=== PATIENT | female | born 1990 | race Caucasian/White ===

== ENCOUNTER 2016-09-12 15:35 | Emergency (ER) | payer BC ==
[2016-09-12 16:00] VITALS: BP 142/91; PULSE 99; RESP 16; TEMP 97.9
--- NOTE | 2016-09-12 17:14 | ED ---
Abdominal Pain HPI - General Chief Complaint: Abdominal Pain Stated Complaint: abd pain Time Seen by Provider: 09/12/16 16:50 Source: patient, RN notes reviewed Mode of arrival: ambulatory Limitations: no limitations - History of Present Illness Initial Comments: Patient is a 26-year-old female presents to the emergency room for evaluation of right upper quadrant pain. Patient states after eating spinach dip and natalie chaps this past weekend she began developing right upper quadrant pain. Patient states now every time she eats she has right upper quadrant pain with nausea. Patient states yesterday she is having severe pain. Patient states she is unable to get into her primary care provider office today. Patient states she also has been feeling very bloated and gassy. Patient does state that she had a bowel movement today and felt little better and then ate a little bit and her pain returned. Patient does state that she has been worked up for gallbladder issues in the past. Patient states she had a HIDA scan in 2013 with no significant findings. Patient denies fevers or chills. Patient denies current nausea. Patient denies any significant pain. Patient denies pain or burning during urination, trouble urinating or blood in urine. Patient denies chest pain or shortness of breath. Patient denies headache or dizziness. - Related Data Home Medications Medication Instructions Recorded Confirmed Etonogestrel [Nexplanon ( 0 unit TD DIRECTED 09/12/16 09/12/16 control implant)] Previous Rx's Medication Instructions Recorded Famotidine [Pepcid] 20 mg PO DAILY PRN #10 tablet 09/12/16 Ondansetron Odt [Zofran Odt] 4 mg PO Q8HR PRN #12 tab 09/12/16 Allergies Allergy/AdvReac Type Severity Reaction Status Date / Time Pertussis Vaccines Allergy Unknown Verified 09/12/16 16:42 Childhood Review of Systems ROS Statement: Those systems with pertinent positive or pertinent negative responses have been documented in the HPI. ROS Other: All systems not noted in ROS Statement are negative. Past Medical History Past Medical History: No Reported History History of Any Multi-Drug Resistant Organisms: None Reported Past Surgical History: Adenoidectomy Additional Past Surgical History / Comment(s): eyes Past Psychological History: No Psychological Hx Reported Smoking Status: Never smoker Past Alcohol Use History: Occasional, Rare Past Drug Use History: None Reported General Exam - General Exam Comments Initial Comments: Sitting on exam bed, no acute distress. Limitations: no limitations General appearance: alert, in no apparent distress Head exam: Present: atraumatic, normocephalic, normal inspection Eye exam: Present: normal appearance ENT exam: Present: normal exam Neck exam: Present: normal inspection Respiratory exam: Present: normal lung sounds bilaterally. Absent: respiratory distress Cardiovascular Exam: Present: regular rate, normal rhythm, normal heart sounds GI/Abdominal exam: Present: soft, tenderness (mild right upper quadrant), normal bowel sounds. Absent: distended, guarding, rebound, rigid Extremities exam: Present: normal inspection Back exam: Present: normal inspection Neurological exam: Present: alert, oriented X3, CN II-XII intact, normal gait Psychiatric exam: Present: normal affect, normal mood Skin exam: Present: warm, dry, intact, normal color. Absent: rash Course Vital Signs 09/12/16 15:55 Temperature 97.9 F Pulse Rate 99 Respiratory 16 Rate Blood Pressure 142/91 O2 Sat by Pulse 99 Oximetry Medical Decision Making - Medical Decision Making Patient is a 26-year-old female presents emergency room for evaluation of abdominal pain. Labs show no acute findings. Liver enzymes within normal limits. Ultrasound of gallbladder showed no acute findings. Patient still denies any significant pain at the moment. Will send patient home with Pepcid and Zofran as needed. Patient states she has a follow-up appointment with her primary care provider tomorrow. Discussed with patient that she may need HIDA scan for further evaluation. Patient states she understands everything that was discussed with her. Return parameters discussed. Case discussed with Dr. Carranza. - Lab Data Result diagrams: 09/12/16 17:34 09/12/16 17:34 Lab Results 09/12/16 09/12/16 09/12/16 Range/Units 17:34 17:34 17:34 WBC 10.3 (3.8-10.6) k/uL RBC 5.18 (3.80-5.40) m/uL Hgb 14.4 (11.4-16.0) gm/dL Hct 42.6 (34.0-46.0) % MCV 82.1 (80.0-100.0) fL MCH 27.7 (25.0-35.0) pg MCHC 33.8 (31.0-37.0) g/dL RDW 12.5 (11.5-15.5) % Plt Count 346 (150-450) k/uL Neutrophils % 67 % Lymphocytes % 21 % Monocytes % 6 % Eosinophils % 3 % Basophils % 1 % Neutrophils # 6.9 (1.3-7.7) k/uL Lymphocytes # 2.1 (1.0-4.8) k/uL Monocytes # 0.6 (0-1.0) k/uL Eosinophils # 0.3 (0-0.7) k/uL Basophils # 0.1 (0-0.2) k/uL Sodium 142 (137-145) mmol/L Potassium 4.4 (3.5-5.1) mmol/L Chloride 104 (98-107) mmol/L Carbon Dioxide 26 (22-30) mmol/L Anion Gap 12 mmol/L BUN 12 (7-17) mg/dL Creatinine 0.58 (0.52-1.04) mg/dL Est GFR (MDRD) Af Amer >60 (>60 ml/min/1.73 sqM) Est GFR (MDRD) Non-Af >60 (>60 ml/min/1.73 sqM) Glucose 88 (74-99) mg/dL Calcium 9.6 (8.4-10.2) mg/dL Total Bilirubin 0.5 (0.2-1.3) mg/dL AST 25 (14-36) U/L ALT 32 (9-52) U/L Alkaline Phosphatase 65 (38-126) U/L Total Protein 7.5 (6.3-8.2) g/dL Albumin 4.5 (3.5-5.0) g/dL Amylase 51 (30-110) U/L Lipase 89 (23-300) U/L Urine Color Urine Appearance (Clear) Urine pH (5.0-8.0) Ur Specific [place] (1.001-1.035) Urine Protein (Negative) Urine Glucose (UA) (Negative) Urine Ketones (Negative) Urine Blood (Negative) Urine Nitrite (Negative) Urine Bilirubin (Negative) Urine Urobilinogen (<2.0) mg/dL Ur Leukocyte Esterase (Negative) Urine RBC (0-5) /hpf Urine WBC (0-5) /hpf Ur Squamous Epith Cells (0-4) /hpf Urine Bacteria (None) /hpf Urine Mucus (None) /hpf Urine HCG, Qual (Not Detectd) 09/12/16 09/12/16 Range/Units 17:34 17:34 WBC (3.8-10.6) k/uL RBC (3.80-5.40) m/uL Hgb (11.4-16.0) gm/dL Hct (34.0-46.0) % MCV (80.0-100.0) fL MCH (25.0-35.0) pg MCHC (31.0-37.0) g/dL RDW (11.5-15.5) % Plt Count (150-450) k/uL Neutrophils % % Lymphocytes % % Monocytes % % Eosinophils % % Basophils % % Neutrophils # (1.3-7.7) k/uL Lymphocytes # (1.0-4.8) k/uL Monocytes # (0-1.0) k/uL Eosinophils # (0-0.7) k/uL Basophils # (0-0.2) k/uL Sodium (137-145) mmol/L Potassium (3.5-5.1) mmol/L Chloride (98-107) mmol/L Carbon Dioxide (22-30) mmol/L Anion Gap mmol/L BUN (7-17) mg/dL Creatinine (0.52-1.04) mg/dL Est GFR (MDRD) Af Amer (>60 ml/min/1.73 sqM) Est GFR (MDRD) Non-Af (>60 ml/min/1.73 sqM) Glucose (74-99) mg/dL Calcium (8.4-10.2) mg/dL Total Bilirubin (0.2-1.3) mg/dL AST (14-36) U/L ALT (9-52) U/L Alkaline Phosphatase (38-126) U/L Total Protein (6.3-8.2) g/dL Albumin (3.5-5.0) g/dL Amylase (30-110) U/L Lipase (23-300) U/L Urine Color Yellow Urine Appearance Clear (Clear) Urine pH 6.0 (5.0-8.0) Ur Specific [place] 1.010 (1.001-1.035) Urine Protein Negative (Negative) Urine Glucose (UA) Negative (Negative) Urine Ketones Negative (Negative) Urine Blood Negative (Negative) Urine Nitrite Negative (Negative) Urine Bilirubin Negative (Negative) Urine Urobilinogen <2.0 (<2.0) mg/dL Ur Leukocyte Esterase Trace H (Negative) Urine RBC 1 (0-5) /hpf Urine WBC 2 (0-5) /hpf Ur Squamous Epith Cells <1 (0-4) /hpf Urine Bacteria Rare H (None) /hpf Urine Mucus Occasional H (None) /hpf Urine HCG, Qual Not Detected (Not Detectd) - Radiology Data Radiology results: report reviewed, image reviewed Disposition Clinical Impression: Abdominal pain Disposition: HOME SELF-CARE Condition: Good Instructions: Abdominal Pain (ED) Additional Instructions: Take medications as needed. Please follow-up with primary care provider for further evaluation. If any new symptom arises or symptoms worsen, return to ER as soon as possible. Prescriptions: Ondansetron Odt [Zofran Odt] 4 mg PO Q8HR PRN #12 tab PRN Reason: Nausea Famotidine [Pepcid] 20 mg PO DAILY PRN #10 tablet PRN Reason: Pain Referrals: Susi Boston MD [Primary Care Provider] - 1-2 days Time of Disposition: 19:19
--- NOTE | 2016-09-12 17:36 | XR ---
EXAMINATION TYPE: XR KUB DATE OF EXAM: 09/12/2016 5:22 PM COMPARISON: NONE HISTORY: Pain, right upper quadrant and flank pain TECHNIQUE: 2 upright views FINDINGS: The bowel gas pattern is normal. There is no evidence of pneumoperitoneum or pneumatosis. T he soft tissues and osseous structures are unremarkable. The visualized lung bases and pleural spaces are negative. IMPRESSION: No acute processes.
[2016-09-12 17:45] LABS: Basophils # (A) 0.1 k/uL (0-0.2); Basophils % (A) 1 %; CH 28.5; CHCM 34.9; Eosinophils # (A) 0.3 k/uL (0-0.7); Eosinophils % (A) 3 %; HCT 42.6 % (34.0-46.0); HDW 2.81; HGB 14.4 gm/dL (11.4-16.0); Luc # (Auto) 0.25; Luc % (Auto) 2; Lymphocytes # (A) 2.1 k/uL (1.0-4.8); Lymphocytes % (A) 21 %; MCH 27.7 pg (25.0-35.0); MCHC 33.8 g/dL (31.0-37.0); MCV 82.1 fL (80.0-100.0); Mean Platelet Volume 6.9; Monocytes # (A) 0.6 k/uL (0-1.0); Monocytes % (A) 6 %; Neutrophils # (A) 6.9 k/uL (1.3-7.7); Neutrophils % (A) 67 %; RBC 5.18 m/uL (3.80-5.40); RDW 12.5 % (11.5-15.5); WBC 10.3 k/uL (3.8-10.6); WBC (Perox) 10.24
[2016-09-12 17:52] LABS: Appearance,Urine Clear (Clear); Bacteria,Urine Rare /hpf; Bilirubin,Urine Negative (Negative); Glucose,Urine (UA) Negative (Negative); Ketones,Urine Negative (Negative); Leukocyte Esterase,Urine Trace (Negative); Mucus,Urine Occasional /hpf; Nitrite,Urine Negative (Negative); Particle Count 3585; Protein,Urine Negative (Negative); RBC,Urine 1 /hpf (0-5); Squamous Epithelial Cell,Urine <1 /hpf (0-4); UA Billing (MACRO vs. MICRO) MICRO; Urobilinogen,Urine <2.0 mg/dL (<2.0); WBC,Urine 2 /hpf (0-5)
[2016-09-12 17:57] LABS: ALT 32 U/L (9-52); AST 25 U/L (14-36); Alkaline Phosphatase 65 U/L (38-126); Amylase 51 U/L (30-110); Anion Gap 12 mmol/L; Blood Urea Nitrogen 12 mg/dL (7-17); Calcium 9.6 mg/dL (8.4-10.2); Carbon Dioxide 26 mmol/L (22-30); Chloride 104 mmol/L (98-107); Glucose 88 mg/dL (74-99); Non-African American GFR(MDRD) >60 (>60 ml/min/1.73 sqM); Potassium 4.4 mmol/L (3.5-5.1); Sodium 142 mmol/L (137-145); Total Bilirubin 0.5 mg/dL (0.2-1.3); Total Protein 7.5 g/dL (6.3-8.2)
--- NOTE | 2016-09-12 18:59 | US ---
EXAMINATION TYPE: US abdomen limited DATE OF EXAM: 09/12/2016 6:23 PM COMPARISON: NONE CLINICAL HISTORY: RUQ Pain. Nausea Difficult exam due to large amount of overlying bowel gas EXAM MEASUREMENTS: Liver Length: 15.5 cm Gallbladder Wall: 0.2 cm CBD: 0.3 cm Right Kidney: 10.2 x 4.3 x 4.7 cm Pancreas: Tail obscured by overlying bowel gas Liver: Heterogeneous Gallbladder: wnl Evidence for sonographic Brock's sign: No CBD: wnl as visualized, distal portion Right Kidney: No hydronephrosis or masses seen IMPRESSION: NO ACUTE PROCESS.
== END 2016-09-12 19:35 | disposition home or self-care (01) ==
LOC: EC 15:35
DX: R10.11 Right upper quadrant pain (principal); Z79.3 Long term (current) use of hormonal contraceptives; Z88.7 Allergy status to serum and vaccine
CPT/HCPCS: 36415; 74000; 76705; 80053; 81001; 81025; 82150; 83690; 85025; 99284

== ENCOUNTER → 2018-02-15 | Outpatient (CLI) | payer BC ==
--- NOTE | 2018-02-15 10:59 | US ---
EXAMINATION TYPE: Ultrasound OB <= 14 weeks transvaginal DATE OF EXAM: 09/18/17 COMPARISON: NONE CLINICAL HISTORY: 27-year-old female O46.91 Antepartum hemorrhage, unspecified, first t. EXAM PERFORMED: Transvaginal (TV) and Transabdominal (TA) FINDINGS: EXAM MEASUREMENTS: GESTATIONAL AGE / DATING Physician Established: Not yet established . Patient reports ultrasound performed in the office on , 3 days ago which provided NATHAN: 10/09/2018. Dates by LMP: Was discordant, around 8 weeks during recent ultrasound in office. Dates by Current Scan for: (6 weeks/1 days) EDC: 10/10/2018 MATERNAL ANATOMY Uterus: 9.8 x 5.4 x 6.6 cm Right Ovary: 2.3 x 2.8 x 2.1 cm Left Ovary: 2.9 x 2.6 x 1.8 cm Post CDS / Adnexa: wnl Presence of free fluid: none Presence of corpus luteal cyst: not seen Presence of subchorionic bleed: not seen GESTATION / SURVEY CRL: 0.4 cm (6 weeks/1 days) Yolk Sac (normal less than 6mm): 0.3 cm Heart Rate: 124 bpm Rhythm: Normal IUP: Viable IUP IMPRESSION: 1. Single live intrauterine with gestational age of 6 weeks 1 day by crown-rump length. Thi s is consistent with dates seen on ultrasound performed in the office 3 days ago. 2. No appreciable perigestational bleed. 3. Complete survey recommended at 18-20 weeks.
== END | disposition home or self-care (01) ==
LOC: RADUSWWP 10:09
PROVIDERS: ATTEND Obstetrics & Gynecology
DX: O46.91 Antepartum hemorrhage, unspecified, first trimester (principal); Z3A.01 Less than 8 weeks gestation of pregnancy
CPT/HCPCS: 76801; 76817

== ENCOUNTER 2018-09-26 05:35 | Inpatient (IN) | payer BC ==
[2018-09-26] MEDS ORDERED: METHYLERGONOVINE 0.2 MG/ML 1 ML AMP IM PRN (05:57)
[2018-09-26] MEDS ORDERED: OXYTOCIN 10 UNIT/ML 1 ML VIAL IM PRN (05:57)
[2018-09-26] MEDS ORDERED: BUTORPHANOL 1 MG/ML 1 ML VIAL IV PRN (05:57)
[2018-09-26] MEDS ORDERED: LIDOCAINE 0.5% (PF) 5 MG/ML (50 ML SDV) SQ PRN (05:57)
[2018-09-26] MEDS ORDERED: TERBUTALINE 1 MG/ML VIAL SQ PRN (05:57)
[2018-09-26] MEDS ORDERED: CARBOPROST TROMETHAMINE 250 MCG/ML 1 ML AMP IM PRN (05:57)
[2018-09-26 06:07] VITALS: BMI 42.8
[2018-09-26] MEDS: LACTATED RINGERS 1,000 ML IV SCH ×2 (06:23→20:07)
[2018-09-26 06:34] LABS: Basophils # (A) 0.1 k/uL (0-0.2); Basophils % (A) 0 %; Eosinophils # (A) 0.2 k/uL (0-0.7); Eosinophils % (A) 1 %; HCT 35.3 % (34.0-46.0); HGB 11.3 gm/dL (11.4-16.0); Lymphocytes # (A) 2.5 k/uL (1.0-4.8); Lymphocytes % (A) 15 %; MCH 25.3 pg (25.0-35.0); MCHC 32.1 g/dL (31.0-37.0); MCV 78.9 fL (80.0-100.0); Monocytes # (A) 1.1 k/uL (0-1.0); Monocytes % (A) 6 %; Neutrophils # (A) 12.8 k/uL (1.3-7.7); Neutrophils % (A) 76 %; Platelet Count 262 k/uL (150-450); RBC 4.47 m/uL (3.80-5.40); RDW 14.4 % (11.5-15.5); WBC 16.9 k/uL (3.8-10.6)
[2018-09-26] MEDS: OXYTOCIN 30 UNITS/500 ML NS 30 UNIT in SALINE 1 500ML.BAG IV SCH (06:57)
--- NOTE | 2018-09-26 08:39 | P.HPOB ---
History of Present Illness H&P Date: 09/26/18 Chief Complaint: 38+ weeks, spontaneous rupture of membranes The patient is a 28-year-old 2 para 1001 admitted at 38+ weeks as established by a 5 week ultrasound. She is admitted with documented spontaneous rupture of membranes with light meconium-stained fluid. Her has been uncomplicated though she was found with a large for gestational age fetus in the third trimester with estimated weight at the 94th percentile. Her has otherwise been uncomplicated and group B strep status is negative. On labor and delivery, all signs reassuring. Obstetrical history: 2 para 1001 with 1 term vaginal delivery without complications. Current statistics are listed in history of present illness. EDC of 10/09/2018 was established by a 5 week ultrasound. Laboratory workup demonstrates a blood type of A+ with a negative antibody screen. Rubella status is immune. The remainder of the laboratory workup was within normal limi ts. Early Glucola was elevated but followed by a normal three-hour glucose tolerance test. Second trimester Glucola was similarly elevated but followed by a normal three-hour glucose tolerance test. Group B strep status is negative. Gynecologic history: Unremarkable with no history of any infections to include STDs. Review of Systems Review of systems is confined to history of present illness. Past Medical History Past Medical History: No Reported History History of Any Multi-Drug Resistant Organisms: None Reported Past Surgical History: Adenoidectomy Additional Past Surgical History / Comment(s): eyes Past Anesthesia/Blood Transfusion Reactions: No Reported Reaction Past Psychological History: No Psychological Hx Reported Smoking Status: Never smoker Past Alcohol Use History: Occasional, Rare Past Drug Use History: None Reported - Past Family History Brother(s) Additional Family Medical History / Comment(s): aneurysm Medications and Allergies Home Medications Medication Instructions Recorded Confirmed Type Pnv,Calcium 72/Iron/Folic Acid 1 each PO DAILY 09/26/18 09/26/18 History [ Plus Tablet] Allergies Allergy/AdvReac Type Severity Reaction Status Date / Time Pertussis Vaccines Allergy Unknown Verified 09/26/18 05:55 Childhood Exam Vital Signs Temp Pulse Resp BP Pulse Ox 09/26/18 06:03 97.9 F 101 H 18 142/94 99 09/26/18 05:57 97.9 F 101 H 18 142/94 99 Intake and Output 09/25/18 09/26/18 09/26/18 22:59 06:59 14:59 Other: # Voids 1 Weight 127.913 kg In general, this is a well-developed, moderately obese white female in no acute distress. Her heart has a regular rhythm and rate without murmur. Her lungs are clear to auscultation bilaterally in all [place]. Her abdomen is gravid, nondistended, has normal active bowel sounds, soft, nontender, and without any palpable masses aside from uterine fundus. Her extremities without any cyanosis, clubbing, or significant edema and are nontender to palpation bilaterally. Digital cervical examination demonstrates her sugars to be 5-6 cm dilated, partially 70% effaced, with the vertex in presentation at -2 station. Results Result Diagrams: 09/26/18 06:20 Abnormal Lab Results - Last 24 Hours (Table) 09/26/18 Range/Units 06:20 WBC 16.9 H (3.8-10.6) k/uL Hgb 11.3 L (11.4-16.0) gm/dL MCV 78.9 L (80.0-100.0) fL Neutrophils # 12.8 H (1.3-7.7) k/uL Monocytes # 1.1 H (0-1.0) k/uL Assessment and Plan (1) Spontaneous rupture of amniotic membranes Current Visit: Yes Status: Acute Code(s): VMJ3728 - SNOMED Code(s): 708757229 (2) Active labor at term Current Visit: Yes Status: Acute Code(s): EIH5246 - SNOMED Code(s): 12700691 Plan: The patient has requested relative nonintervention and is making progress on her own. As result she will have close maternal and surveillance and expectant management will be practiced. She does understand that should she stalled the labor process, Pitocin augmentation will be added. She is a good candidate for either IV or epidural analgesia should she so choose.
[2018-09-26] MEDS ORDERED: ROPIVACAINE 5MG/ML 20ML VIAL ONE (10:25)
[2018-09-26] MEDS ORDERED: SODIUM CHLORIDE 0.9% 100 ML BAG ONE (10:25)
[2018-09-26] MEDS ORDERED: fentaNYL (PF) 50 MCG/ML 5 ML AMP ONE (10:25)
[2018-09-26] MEDS ORDERED: BENZOCAINE/MENTHOL SPRAY 1 GM/SPRAY AEROSOL TOPICAL PRN (13:46)
[2018-09-26] MEDS ORDERED: diphenhydrAMINE 50 MG/ML 1 ML VIAL IVP PRN ×2 (13:46)
[2018-09-26] MEDS ORDERED: SIMETHICONE 80 MG CHEWABLE PO PRN (13:46)
[2018-09-26] MEDS ORDERED: ACETAMINOPHEN TAB 325 MG TAB PO PRN (13:46)
[2018-09-26] MEDS ORDERED: HYDROcodone/APAP 7.5-325MG 1 EACH TAB PO PRN (13:46)
[2018-09-26] MEDS ORDERED: HYDROCORTISONE 2.5% RECTAL CREAM 30 GM TUBE RECTAL PRN (13:46)
[2018-09-26] MEDS ORDERED: HYDROcodone/APAP 5-325MG 1 EACH TAB PO PRN (13:46)
[2018-09-26] MEDS ORDERED: LANOLIN CREAM 5 GM TUBE TOPICAL PRN (13:46)
[2018-09-26] MEDS ORDERED: ZOLPIDEM 5 MG TAB PO PRN (13:46)
[2018-09-26] MEDS ORDERED: WITCH HAZEL 1 EACH MED..PAD TOPICAL PRN (13:46)
[2018-09-26] MEDS ORDERED: diphenhydrAMINE 25 MG CAP PO PRN (13:46)
[2018-09-26] MEDS ORDERED: diphenhydrAMINE 50 MG CAP PO PRN (13:46)
--- NOTE | 2018-09-26 13:50 | P.PROBDLV ---
Vaginal Delivery Note - . Vaginal Delivery Note: The patient is a 28-year-old 2 para 1001 admitted at 38+ weeks as established by good dating parameters. She is admitted with documented spontaneous rupture of membranes for light meconium-stained fluid. Her has been uncomplicated though her most recent ultrasound in the third trimester demonstrated growth at the 94th percentile. Jw maneuvers would suggest the fetus to be smaller than that. On labor and delivery, she requested relative nonintervention. She did have an epidural catheter placed for analgesia during the active phase of labor and ultimately progressed to complete where after she pushed very quickly to a normal spontaneous vaginal delivery which occurred as I was entering the room and the was delivered by the nurse in the occiput anterior position. There was a loose nuchal cord 1 which was reduced prior to delivery of the . The patient did deliver a viable 7 lbs. 7 oz. baby boy with Apgars of 8 at 1 minute and 9 at 5 minutes as noted above. The placenta was delivered spontaneously, intact, and grossly normal with a grossly normal three-vessel cord inserted approximate 2-3 cm from the margin of the placental disc. There were no lacerations of the perineum, vagina, or cervix. Estimated blood loss for the entire case was approximately 100 mL. There were no complications aside from the relatively precipitous nature of the delivery. All sponge, instrument, and needle counts were correct. Both mother and are resting comfortably in recovery.
[2018-09-26] MEDS ORDERED: OXYTOCIN 20 UNITS/1000 ML NS 1,000 ML IV SCH (14:00)
[2018-09-26] MEDS: SENNOSIDES-DOCUSATE SODIUM 1 EACH TAB PO SCH (20:08)
[2018-09-26] MEDS: IBUPROFEN 600 MG TAB PO PRN (20:09)
[2018-09-27] MEDS: OXYTOCIN 30 UNITS/500 ML NS 30 UNIT in SALINE 1 500ML.BAG IV SCH (00:58)
[2018-09-27] MEDS: SENNOSIDES-DOCUSATE SODIUM 1 EACH TAB PO SCH (08:10)
[2018-09-27] MEDS: IBUPROFEN 600 MG TAB PO PRN ×2 (08:10→13:54)
[2018-09-27 09:31] VITALS: RESP 20
--- NOTE | 2018-09-27 10:33 | P.DS ---
Providers Date of admission: 09/26/18 05:43 Expected date of discharge: 09/27/18 Attending physician: Kleber Beasley Primary care physician: Stated None - Discharge Diagnosis(es) (1) Spontaneous rupture of amniotic membranes Current Visit: Yes Status: Acute (2) Active labor at term Current Visit: Yes Status: Acute (3) Normal spontaneous vaginal delivery Current Visit: Yes Status: Acute Hospital Course: The patient is a 28-year-old 2 para 1001 admitted at 38+ weeks by good dating parameters. She is admitted with documented spontaneous rupture of membranes with light meconium-stained fluid. Her was uncomplicated though she did have a large for gestational age fetus based upon third trimester ultrasound. Group B strep status was negative. On labor and delivery, she declined any significant intervention but had an epidural catheter placed for analgesia. She ultimately progressed to complete and then fairly quickly pushed to a normal spontaneous vaginal delivery of a viable 7 lbs. 7 oz. baby boy with Apgars of 8 at 1 minute and 9 at 5 minutes. Her course was unremarkable with vital signs remaining stable and her temperature was afebrile throughout. She was deemed stable for discharge on day #1 was discharged home to follow-up in the office in 6 weeks' time routinely. Discharge instructions included calling for any significantly increased fever abdominal pain, perineal complaints, breast complaints, significantly increased bleeding, or foul-smelling lochia, or anything else that concerned her. She is additionally instructed to have nothing in the vagina for at least 6 weeks time to include intercourse. She understood her instructions and agrees to follow up as noted above. Discharge medications included continued vitamins as she has opted to breast-feed and [id number] analgesic pain medications. Maternal blood type is A+ and rubella status is immune. Procedures: #1. Epidural analgesia #2. Normal spontaneous vaginal delivery Patient Condition at Discharge: Good Plan - Discharge Summary New Discharge Prescriptions: No Action Pnv,Calcium 72/Iron/Folic Acid [ Plus Tablet] 1 each PO DAILY Discharge Medication List Pnv,Calcium 72/Iron/Folic Acid [ Plus Tablet] 1 each PO DAILY 09/26/18 [ History] Follow up Appointment(s)/Referral(s): Kleber Beasley MD [STAFF PHYSICIAN] - 6 Weeks Discharge Disposition: HOME SELF-CARE
[2018-09-27 18:24] VITALS: BP 140/80; PULSE 90; TEMP 97.8
== END 2018-09-27 15:30 | disposition home or self-care (01) | DRG 807 ==
LOC: FBPOP 05:35 → 4FBP 05:43
PROVIDERS: ADMIT Obstetrics & Gynecology Obstetrics; ATTEND Obstetrics & Gynecology
PROC: 10E0XZZ Delivery of Products of Conception, External Approach (ICD-10-PCS; principal; 2018-09-26)
PROC: 00HU33Z Insertion of Infusion Device into Spinal Canal, Percutaneous Approach (ICD-10-PCS; 2018-09-26)
PROC: 3E0R3BZ Introduction of Anesthetic Agent into Spinal Canal, Percutaneous Approach (ICD-10-PCS; 2018-09-26)
DX: O77.0 Labor and delivery complicated by meconium in amniotic fluid (principal); Z37.0 Single live birth; O69.81X0 Labor and delivery complicated by cord around neck, without compression, not applicable or unspecified; O99.214 Obesity complicating childbirth; Z3A.38 38 weeks gestation of pregnancy; Z88.7 Allergy status to serum and vaccine
CPT/HCPCS: 85025; 86850; 86900; 86901

== ENCOUNTER → 2021-05-07 | Outpatient (CLI) | payer BC ==
[2021-05-07 17:30] LABS: Basophils % (A) 0.7 %; Eosinophils # (A) 0.26 X 10*3/uL (0.04-0.35); Eosinophils % (A) 1.9 %; HCT 43.3 % (37.2-46.3); HGB 13.2 g/dL (12.0-15.0); Lymphocytes # (A) 3.83 X 10*3/uL (0.90-5.00); Lymphocytes % (A) 27.5 %; MCH 24.6 pg (27.0-32.0); MCHC 30.5 g/dL (32.0-37.0); MCV 80.6 fL (80.0-97.0); Mean Platelet Volume 9.7 fL (9.5-12.2); Monocytes # (A) 0.94 X 10*3/uL (0.20-1.00); Monocytes % (A) 6.8 %; Neutrophils # (A) 8.67 X 10*3/uL (1.80-7.70); Neutrophils % (A) 62.2 %; Platelet Count 390 X 10*3/uL (140-440); RBC 5.37 X 10*6/uL (4.10-5.20); RDW 13.9 % (11.5-14.5); WBC 13.92 X 10*3/uL (4.50-10.00)
[2021-05-07 18:07] LABS: ALT 17 U/L (8-44); AST 19 U/L (13-35); Albumin 4.4 g/dL (3.8-4.9); Albumin/Globulin Ratio 1.69 (1.60-3.17); Alkaline Phosphatase 72 U/L (41-126); BUN/Creat Ratio 24.13 Ratio (12.00-20.00); Blood Urea Nitrogen 13.8 mg/dL (9.0-27.0); Calcium 9.2 mg/dL (8.7-10.3); Carbon Dioxide 20.1 mmol/L (21.6-31.8); Chloride 104 mmol/L (96-109); Chol/HDL Ratio 6.18 Ratio; Globulin 2.6 g/dL (1.6-3.3); Glucose 87 mg/dL (70-110); Non-African American GFR(CKD) 123.4 (60.0-200.0); Potassium 4.5 mmol/L (3.5-5.5); Sodium 137 mmol/L (135-145)
== END | disposition home or self-care (01) ==
LOC: LABWHC1 09:43
PROVIDERS: ATTEND Internal Medicine
DX: Z00.01 Encounter for general adult medical examination with abnormal findings (principal); F41.1 Generalized anxiety disorder; Z13.220 Encounter for screening for lipoid disorders
CPT/HCPCS: 36415; 80053; 80061; 85025

== ENCOUNTER → 2021-05-31 | Outpatient (CLI) | payer BC ==
--- NOTE | 2021-05-31 11:34 | US ---
EXAMINATION TYPE: US abdomen limited DATE OF EXAM: 05/31/2021 COMPARISON: US dated 09/12/2016 CLINICAL HISTORY: Epigastric Abd pain R10.13. EXAM MEASUREMENTS: Liver Length: 15.1 cm Gallbladder Wall: 0.2 cm CBD: 0.3 cm Right Kidney: 12.3 x 5.0 x 5.9 cm Pancreas: partially obscured by bowel gas. Liver: wnl Gallbladder: No stones seen Evidence for sonographic Brock's sign: No CBD: wnl Right Kidney: No hydronephrosis or masses seen IMPRESSION: No significant abnormalities evident
== END | disposition home or self-care (01) ==
LOC: RADUSWWP 09:37
PROVIDERS: ATTEND Internal Medicine
DX: R10.84 Generalized abdominal pain (principal)
CPT/HCPCS: 76705

== ENCOUNTER → 2021-07-13 | Outpatient (CLI) | payer BC ==
--- NOTE | 2021-07-13 12:24 | NM ---
EXAMINATION TYPE: NM hepatobiliary w EF DATE OF EXAM: 07/13/2021 COMPARISON: Previous exam 09/22/2016, ultrasound 05/31/2021 HISTORY: Generalized abdominal pain TECHNIQUE: After the intravenous administration of 4.5 mCi Tc 99m Mebrofenin hepatobiliary scintigrap hy is performed. Immediate images post injection. FINDINGS: There is satisfactory initial accumulation of tracer by the liver. The gallbladder is visualized wit hin 22 minutes. The small bowel activity is noted within 8 minutes. At one hour 8 ounces of oral en sure plus is given to mimic CCK and gallbladder ejection fraction is calculated at 79 %, in the dez l range. Therefore there is no scintigraphic evidence of cystic or common bile duct obstruction to s uggest acute cholecystitis or gallbladder dyskinesia. IMPRESSION: Exam is within normal limits.
== END | disposition home or self-care (01) ==
LOC: RADNMMAIN 06:45
PROVIDERS: ATTEND Internal Medicine
DX: R10.84 Generalized abdominal pain (principal)
CPT/HCPCS: 78226; A9537

== ENCOUNTER 2022-09-22 02:47 | Emergency (ER) | payer BC ==
[2022-09-22 02:53] VITALS: BP 138/89; PULSE 88; RESP 16; TEMP 97.6
[2022-09-22] MEDS ORDERED: ONDANSETRON 4 MG/2 ML VIAL IVP STA (03:07)
[2022-09-22] MEDS ORDERED: SODIUM CHLORIDE 0.9% 1,000 ML IV STA (03:07)
[2022-09-22] MEDS ORDERED: MORPHINE SULFATE 4 MG/ML SYRINGE IVP STA (03:08)
[2022-09-22 03:33] LABS: Basophils # (A) 0.1 k/uL (0-0.2); Basophils % (A) 0 %; Eosinophils # (A) 0.5 k/uL (0-0.7); Eosinophils % (A) 3 %; HCT 42.3 % (34.0-46.0); HGB 14.2 gm/dL (11.4-16.0); Lymphocytes # (A) 2.1 k/uL (1.0-4.8); Lymphocytes % (A) 14 %; MCH 27.7 pg (25.0-35.0); MCHC 33.5 g/dL (31.0-37.0); MCV 82.6 fL (80.0-100.0); Mean Platelet Volume 7.1; Monocytes # (A) 0.9 k/uL (0-1.0); Monocytes % (A) 6 %; Neutrophils # (A) 11.4 k/uL (1.3-7.7); Neutrophils % (A) 76 %; Platelet Count 333 k/uL (150-450); RBC 5.12 m/uL (3.80-5.40); RDW 12.7 % (11.5-15.5)
--- NOTE | 2022-09-22 03:44 | ED ---
Abdominal Pain HPI <Victor M De Jesus - Last Filed: 09/22/22 07:03> - General Source: patient Mode of arrival: ambulatory Limitations: no limitations <Lizandro Angeles - Last Filed: 09/22/22 22:12> - General Chief Complaint: Abdominal Pain Stated Complaint: upper abdominal pain Time Seen by Provider: 09/22/22 02:59 - History of Present Illness Initial Comments: Patient is a 32-year-old female presenting with chief complaint of right upper quadrant pain. Patient states that the pain woke her up out of her sleep, feels a sharp pain that goes to her back. She admits to nausea due to the pain, no vomiting. No fevers or chills. No dysuria or hematuria. No diarrhea. No lower abdominal pain. (Lizandro Angeles) - Related Data Home Medications Medication Instructions Recorded Confirmed Vit No.180/Iron/Folic 1 each PO DAILY 09/26/18 09/26/18 [ Plus Tablet] Previous Rx's Medication Instructions Recorded Cefpodoxime Proxetil [Vantin] 200 mg PO Q12HR 10 Days #20 tab 09/22/22 Allergies Allergy/AdvReac Type Severity Reaction Status Date / Time Pertussis Vaccines Allergy Unknown Verified 09/22/22 02:50 Childhood Review of Systems ROS Other: All systems not noted in ROS Statement are negative. <Victor M De Jesus - Last Filed: 09/22/22 07:03> ROS Other: All systems not noted in ROS Statement are negative. <Lizandro Angeles - Last Filed: 09/22/22 22:12> ROS Statement: Those systems with pertinent positive or pertinent negative responses have been documented in the HPI. Past Medical History Past Medical History: No Reported History History of Any Multi-Drug Resistant Organisms: None Reported Past Surgical History: Adenoidectomy Additional Past Surgical History / Comment(s): eyes Past Anesthesia/Blood Transfusion Reactions: No Reported Reaction Past Psychological History: No Psychological Hx Reported Smoking Status: Never smoker Past Alcohol Use History: Occasional Past Drug Use History: None Reported - Past Family History Brother(s) Additional Family Medical History / Comment(s): aneurysm <Lizandro Angeles - Last Filed: 09/22/22 22:12> General Exam Limitations: no limitations General appearance: alert, in distress Head exam: Present: atraumatic, normocephalic, normal inspection Eye exam: Present: normal appearance Neck exam: Present: normal inspection Respiratory exam: Present: normal lung sounds bilaterally. Absent: respiratory distress, wheezes, rales, rhonchi, stridor Cardiovascular Exam: Present: regular rate, normal rhythm, normal heart sounds. Absent: systolic murmur, diastolic murmur, rubs, gallop, clicks GI/Abdominal exam: Present: soft, tenderness. Absent: distended, guarding, rebound, rigid Expanded GI/Abdominal exam: Present: Brock's sign Neurological exam: Present: alert, oriented X3, CN II-XII intact Psychiatric exam: Present: normal affect, normal mood Skin exam: Present: warm, dry, intact, normal color. Absent: rash <Lizandro Angeles - Last Filed: 09/22/22 22:12> Course Vital Signs 09/22/22 02:50 Temperature 97.6 F Pulse Rate 88 Respiratory 16 Rate Blood Pressure 138/89 O2 Sat by Pulse 98 Oximetry Medical Decision Making - Lab Data Result diagrams: 09/22/22 03:20 09/22/22 03:20 <Victor M De Jesus - Last Filed: 09/22/22 07:03> - Lab Data Result diagrams: 09/22/22 03:20 09/22/22 03:20 <Lizandro Angeles - Last Filed: 09/22/22 22:12> - Medical Decision Making Patient just continues to me by previous shift physician material assistant, Osiris suazo. Briefly, patient is a 32-year-old female presents emergency department with right abdominal pain. Laboratory evaluation suggest urinary tract infection. Plan at Sign out was to follow-up with pending computed tomography scan. CBC is reviewed showing no acute processes. Radiology interpretation was reassuring. Patient reevaluated at bedside at 7:06 AM. Clinical presentation consistent with pyelonephritis. At the bedside she is in stable medical condition. Patient has no drug ALLERGIES. Patient given ceftriaxone. Patient given prescription for antibiotics. Return precautions discussed. Patient advised to follow-up with primary care doctor. (Victor M De Jesus) Was pt. sent in by a medical professional or institution (, PA, MARKET MAKER, urgent care, hospital, or senior care...) When possible be specific @ -No Did you speak to anyone other than the patient for history (EMS, parent, family, police, friend...)? What history was obtained from this source @ -No Did you review nursing and triage notes (agree or disagree)? Why? @ -I reviewed and agree with nursing and triage notes Were old charts reviewed (outside hosp., previous admission, EMS record, old EKG, old radiological studies, urgent care reports/EKG's, senior care records)? Report findings @ -No old charts were reviewed Differential Diagnosis (chest pain, altered mental status, abdominal pain women, abdominal pain men, vaginal bleeding, weakness, fever, dyspnea, syncope, headache, dizziness, GI bleed, back pain, seizure, CVA, palpatations, mental health, musculoskeletal)? @ -MDM Differential Abdominal Pain Women: Appendicitis, Cholecystitis, diverticulosis, ischemic bowel, pancreatitis, hepatitis, UTI, gastroenteritis, AAA, incarcerated hernia, bowel obstruction, constipation, inflammatory bowel, hepatitis, peptic ulcer disease, splenic infarction, perforated viscus, vulvitis, ovarian torsion, PID, kidney stone, placenta abruption... This is not meant to be an all-inclusive list EKG interpreted by me (3pts min.). @ -As above X-rays interpreted by me (1pt min.). @ -None done CT interpreted by me (1pt min.). @ -CT shows no acute abdominal or pelvic process U/S interpreted by me (1pt. min.). @ -None done What testing was considered but not performed or refused? (CT, X-rays, U/S, labs)? Why? @ -None What meds were considered but not given or refused? Why? @ -None Did you discuss the management of the patient with other professionals (professionals i.e. , PA, MARKET MAKER, lab, RT, psych nurse, child protective services social worker, mess attendant crew, teacher, correctional security officer, caseworker intake)? Give summary @ -No Was smoking cessation discussed for >3mins.? @ -No Was critical care preformed (if so, how long)? @ -No Were there social determinants of health that impacted care today? How? (Homelessness, low income, unemployed, alcoholism, drug addiction, transportation, low edu. Level, literacy, decrease access to med. care, snf, rehab)? @ -No Was there de-escalation of care discussed even if they declined (Discuss DNR or withdrawal of care, Hospice)? DNR status @ -No What co-morbidities impacted this encounter? (DM, HTN, Smoking, COPD, CAD, Cancer, CVA, ARF, Chemo, Hep., AIDS, mental health diagnosis, sleep apnea, morbid obesity)? @ -None Was patient admitted / discharged? Hospital course, mention meds given and route, prescriptions, significant lab abnormalities, going to OR and other pertinent info. @ -Charged home. Patient is a 32-year-old female presenting with chief complaint of right-sided upper abdominal pain with radiation to the back. On physical examination there is right upper quadrant tenderness. Lab work shows WBC 15. There is mild transaminitis. Lipase 362. Urine shows evidence of severe infection, hCG is negative. Patient was signed out to my attending Dr. De Jesus for further management and disposition pending CT reading. See the remainder of his note for further details Undiagnosed new problem with uncertain prognosis? @ -No Drug Therapy requiring intensive monitoring for toxicity (Heparin, Nitro, Insulin, Cardizem)? @ -No Were any procedures done? @ -No Diagnosis/symptom? @ -Pyelonephritis Acute, or Chronic, or Acute on Chronic? @ -Acute Uncomplicated (without systemic symptoms) or Complicated (systemic symptoms)? @ -Uncomplicated Side effects of treatment? @ -No Exacerbation, Progression, or Severe Exacerbation? @ -No Poses a threat to life or bodily function? How? (Chest pain, [place], [place], pneumonia, PE, COPD, DKA, ARF, appy, cholecystitis, CVA, Diverticulitis, Homicidal, Suicidal, threat to staff... and all critical care pts) @ - (Lizandro Angeles) - Lab Data Lab Results 09/22/22 09/22/22 09/22/22 Range/Units 03:20 03:20 03:20 WBC 15.0 H (3.8-10.6) k/uL RBC 5.12 (3.80-5.40) m/uL Hgb 14.2 (11.4-16.0) gm/dL Hct 42.3 (34.0-46.0) % MCV 82.6 (80.0-100.0) fL MCH 27.7 (25.0-35.0) pg MCHC 33.5 (31.0-37.0) g/dL RDW 12.7 (11.5-15.5) % Plt Count 333 (150-450) k/uL MPV 7.1 Neutrophils % 76 % Lymphocytes % 14 % Monocytes % 6 % Eosinophils % 3 % Basophils % 0 % Neutrophils # 11.4 H (1.3-7.7) k/uL Lymphocytes # 2.1 (1.0-4.8) k/uL Monocytes # 0.9 (0-1.0) k/uL Eosinophils # 0.5 (0-0.7) k/uL Basophils # 0.1 (0-0.2) k/uL Sodium (137-145) mmol/L Potassium (3.5-5.1) mmol/L Chloride (98-107) mmol/L Carbon Dioxide (22-30) mmol/L Anion Gap mmol/L BUN (7-17) mg/dL Creatinine (0.52-1.04) mg/dL Est GFR (CKD-EPI)AfAm (>60 ml/min/1.73 sqM) Est GFR (CKD-EPI)NonAf (>60 ml/min/1.73 sqM) Glucose (74-99) mg/dL Plasma Lactic Acid Fritz (0.7-2.0) mmol/L Calcium (8.4-10.2) mg/dL Total Bilirubin (0.2-1.3) mg/dL AST (14-36) U/L ALT (4-34) U/L Alkaline Phosphatase (38-126) U/L Total Protein (6.3-8.2) g/dL Albumin (3.5-5.0) g/dL Amylase (30-110) U/L Lipase (23-300) U/L Urine Color Yellow Urine Appearance Cloudy H (Clear) Urine pH 6.0 (5.0-8.0) Ur Specific [place] 1.020 (1.001-1.035) Urine Protein 1+ H (Negative) Urine Glucose (UA) Negative (Negative) Urine Ketones Negative (Negative) Urine Blood Small H (Negative) Urine Nitrite Negative (Negative) Urine Bilirubin Negative (Negative) Urine Urobilinogen 4.0 (<2.0) mg/dL Ur Leukocyte Esterase Large H (Negative) Urine RBC 24 H (0-5) /hpf Urine WBC >182 H (0-5) /hpf Ur Squamous Epith Cells 5 H (0-4) /hpf Urine Bacteria Rare H (None) /hpf Urine Mucus Occasional H (None) /hpf Urine HCG, Qual Not Detected (Not Detectd) 09/22/22 09/22/22 Range/Units 03:20 03:20 WBC (3.8-10.6) k/uL RBC (3.80-5.40) m/uL Hgb (11.4-16.0) gm/dL Hct (34.0-46.0) % MCV (80.0-100.0) fL MCH (25.0-35.0) pg MCHC (31.0-37.0) g/dL RDW (11.5-15.5) % Plt Count (150-450) k/uL MPV Neutrophils % % Lymphocytes % % Monocytes % % Eosinophils % % Basophils % % Neutrophils # (1.3-7.7) k/uL Lymphocytes # (1.0-4.8) k/uL Monocytes # (0-1.0) k/uL Eosinophils # (0-0.7) k/uL Basophils # (0-0.2) k/uL Sodium 141 (137-145) mmol/L Potassium 3.8 (3.5-5.1) mmol/L Chloride 104 (98-107) mmol/L Carbon Dioxide 29 (22-30) mmol/L Anion Gap 8 mmol/L BUN 13 (7-17) mg/dL Creatinine 0.63 (0.52-1.04) mg/dL Est GFR (CKD-EPI)AfAm >90 (>60 ml/min/1.73 sqM) Est GFR (CKD-EPI)NonAf >90 (>60 ml/min/1.73 sqM) Glucose 148 H (74-99) mg/dL Plasma Lactic Acid Fritz 1.9 (0.7-2.0) mmol/L Calcium 9.0 (8.4-10.2) mg/dL Total Bilirubin 0.6 (0.2-1.3) mg/dL AST 130 H (14-36) U/L ALT 58 H (4-34) U/L Alkaline Phosphatase 67 (38-126) U/L Total Protein 6.9 (6.3-8.2) g/dL Albumin 4.1 (3.5-5.0) g/dL Amylase 47 (30-110) U/L Lipase 362 H (23-300) U/L Urine Color Urine Appearance (Clear) Urine pH (5.0-8.0) Ur Specific [place] (1.001-1.035) Urine Protein (Negative) Urine Glucose (UA) (Negative) Urine Ketones (Negative) Urine Blood (Negative) Urine Nitrite (Negative) Urine Bilirubin (Negative) Urine Urobilinogen (<2.0) mg/dL Ur Leukocyte Esterase (Negative) Urine RBC (0-5) /hpf Urine WBC (0-5) /hpf Ur Squamous Epith Cells (0-4) /hpf Urine Bacteria (None) /hpf Urine Mucus (None) /hpf Urine HCG, Qual (Not Detectd) Disposition Is patient prescribed a controlled substance at d/c from ED?: No Time of Disposition: 07:04 <Victor M De Jesus - Last Filed: 09/22/22 07:03> <Lizandro Angeles - Last Filed: 09/22/22 22:12> Clinical Impression: Pyelonephritis Disposition: HOME SELF-CARE Condition: Fair Prescriptions: Cefpodoxime Proxetil [Vantin] 200 mg PO Q12HR 10 Days #20 tab Referrals: Susi Boston MD [Primary Care Provider] - 1-2 days
[2022-09-22 03:48] LABS: ALT 58 U/L (4-34); AST 130 U/L (14-36); African American GFR (CKD) >90 (>60 ml/min/1.73 sqM); Albumin 4.1 g/dL (3.5-5.0); Alkaline Phosphatase 67 U/L (38-126); Amylase 47 U/L (30-110); Anion Gap 8 mmol/L; Blood Urea Nitrogen 13 mg/dL (7-17); Carbon Dioxide 29 mmol/L (22-30); Chloride 104 mmol/L (98-107); Glucose 148 mg/dL (74-99); Lipase 362 U/L (23-300); Non-African American GFR(CKD) >90 (>60 ml/min/1.73 sqM); Potassium 3.8 mmol/L (3.5-5.1); Sodium 141 mmol/L (137-145); Total Bilirubin 0.6 mg/dL (0.2-1.3); Total Protein 6.9 g/dL (6.3-8.2)
[2022-09-22 03:52] LABS: Appearance,Urine Cloudy (Clear); Bacteria,Urine Rare /hpf; Bilirubin,Urine Negative (Negative); Blood,Urine Small (Negative); Color,Urine Yellow; Glucose,Urine (UA) Negative (Negative); Ketones,Urine Negative (Negative); Leukocyte Esterase,Urine Large (Negative); Mucus,Urine Occasional /hpf; Nitrite,Urine Negative (Negative); Protein,Urine 1+ (Negative); RBC,Urine 24 /hpf (0-5); Squamous Epithelial Cell,Urine 5 /hpf (0-4); WBC,Urine >182 /hpf (0-5)
[2022-09-22] MEDS ORDERED: cefTRIAXone IN SWFI 1,000 MG/10 ML SYRINGE IVP STA (04:22)
--- NOTE | 2022-09-22 06:56 | CT ---
EXAMINATION TYPE: CT abdomen pelvis w con CT DLP: 2232 mGycm, Automated exposure control for dose reduction was used. DATE OF EXAM: 09/22/2022 4:03 AM COMPARISON: Abdominal ultrasound 05/31/2021 CLINICAL INDICATION:Female, 32 years old with history of RUQ abdominal pain; TECHNIQUE: Standard CT of the abdomen and pelvis following the administration of 100 cc of Isovue 3 00 IV contrast material. Coronal and sagittal reformats were performed. FINDINGS: LOWER CHEST: Unremarkable ABDOMEN LIVER: Unremarkable GALLBLADDER AND BILE DUCTS: Unremarkable. PANCREAS: Unremarkable. SPLEEN: Unremarkable. ADRENAL GLANDS: Unremarkable. KIDNEYS AND URETERS: No evidence of hydronephrosis or renal calculus. The kidneys enhance symmetrical ly without focal lesion. PELVIS BLADDER: Unremarkable REPRODUCTIVE: Unremarkable. ABDOMEN & PELVIS STOMACH AND BOWEL: Stomach and duodenum are unremarkable . There is no focal wall thickening or surro unding inflammatory changes. No evidence of bowel obstruction. The appendix is within normal limits. PERITONEUM: No evidence of pneumoperitoneum or free fluid. VASCULATURE: No evidence of aortic aneurysm. MUSCULOSKELETAL: No acute osseous abnormalities LYMPH NODES: No gross evidence for lymphadenopathy. SOFT TISSUE/ABDOMINAL WALL: Small fat filled umbilical hernia. IMPRESSION: No acute abdominal/pelvic process.
[2022-09-22] MEDS ORDERED: ONDANSETRON 4 MG ODT STARTER PACK 2 TAB BTL PO STA (07:08)
== END 2022-09-22 07:26 | disposition home or self-care (01) ==
LOC: EC 02:47
DX: N12 Tubulo-interstitial nephritis, not specified as acute or chronic (principal)
CPT/HCPCS: 36415; 80053; 82150; 83605; 83690; 85025; 81001; 81025; 74177; 99284; 96374; 96375; 96361; J2270; J2405; J0696; S0119; Q9967